=== PATIENT | female | born 1950 | race Caucasian/White ===

== ENCOUNTER 2018-06-02 13:38 | Inpatient (IN) | payer OTHER ==
[~2018-06-02] VITALS: Ht 160 cm; Wt 72.8 kg
[2018-06-02 15:47] VITALS: BP 114/53
[2018-06-02] MEDS ORDERED: MOTRIN600 MG PO (16:18)
[2018-06-02] MEDS ORDERED: XANAX0.25 MG PO (16:20)
[2018-06-02] MEDS ORDERED: ZYRTEC10 M3 PO (16:22)
[2018-06-02] MEDS ORDERED: VASOTEC20 MG PO (16:22)
[2018-06-02] MEDS ORDERED: ERY-TAB500 MG PO (16:23)
[2018-06-02] MEDS ORDERED: FLUTICASONE PRO60 ML TP (16:24)
[2018-06-02] MEDS ORDERED: HYDROCHLOROTHIA25 MG PO (16:25)
[2018-06-02] MEDS ORDERED: LEVOTHYROXINE50 MCG PO (16:26)
[2018-06-02] MEDS ORDERED: COMBIVENT RESPIM4 GM IH (16:26)
[2018-06-02] MEDS ORDERED: CYTOMEL5 MCG PO (16:27)
[2018-06-02] MEDS ORDERED: PAXIL20 MG PO (16:27)
[2018-06-02] MEDS ORDERED: NUCYNTA50 MG PO (16:28)
[2018-06-02] MEDS ORDERED: LIPITOR20 MG PO (16:29)
[2018-06-02] MEDS ORDERED: NEURONTIN600 MG PO (16:29)
[2018-06-02] MEDS ORDERED: GLUCAGON1 MG IM (16:30)
[2018-06-02] MEDS ORDERED: HUMALOG100 UNIT/1 SC (16:30)
[2018-06-02] MEDS ORDERED: TOPROL XL100 MG PO (16:31)
[2018-06-02 23:32] VITALS: BP 132/61
[2018-06-03 05:25] VITALS: BP 136/62
[2018-06-03 06:54] LABS: HEMOGLOBIN 9.9 G/DL (11.9-15.5); MCH 32.4 PG (29.0-34.0); MCHC 34.1 G/DL (30.0-36.0); MCV 94.8 FL (83-99); PLATELET COUNT 273 K/uL (156-360); RBC DIS.WIDTH-CV 12.4 % (11.8-14.6); RBC DIS.WIDTH-SD 43.2 % (39-53); RED BLOOD COUNT 3.06 M/uL (3.80-5.20); WHITE BLOOD COUNT 12.3 K/uL (4.1-10.2)
[2018-06-03 07:18] LABS: ALBUMIN 2.9 G/DL (3.2-4.8); ALKALINE PHOSPHATASE 83 IU/L (3-129); ALT (GPT) 7 IU/L (3-49); AST (GOT) 10 IU/L (2-34); CHLORIDE 95 MEQ/L (99-109); CREATININE 0.6 MG/DL (0.6-1.3); GFR ESTIMATE (CALCULATED) > 59 mL/min/; GLUCOSE 222 mg/dL (70-99); POTASSIUM 4.8 MEQ/L (3.7-5.4); SODIUM 137 MEQ/L (136-147); TOTAL BILIRUBIN 0.8 MG/DL (0.0-1.0); TOTAL PROTEIN 5.6 G/DL (6.4-8.3); UREA NITROGEN (BUN) 12 mg/dL (9-23)
[2018-06-03 15:25] VITALS: BP 104/53
[2018-06-04 04:01] VITALS: BP 139/100
[2018-06-04 04:40] VITALS: BP 123/61
[2018-06-04 05:53] LABS: BASOPHIL (%) 0.8 % (0-1); BASOPHIL COUNT 0.1 K/uL (0-0.1); EOSINOPHIL (%) 2.8 % (0-5); EOSINOPHIL COUNT 0.3 K/uL (0-0.3); HEMATOCRIT 25.7 % (36.0-46.0); HEMOGLOBIN 8.6 G/DL (11.9-15.5); IMMATURE GRANULOCYTE (%) 0.7 % (0.0-0.7); LYMPHOCYTE (%) 12.5 % (15-42); LYMPHOCYTE COUNT 1.5 K/uL (1.0-2.8); MCH 31.9 PG (29.0-34.0); MCHC 33.5 G/DL (30.0-36.0); MCV 95.2 FL (83-99); MONOCYTE (%) 9.7 % (3-12); MONOCYTE COUNT 1.2 K/uL (0-0.8); NEUTROPHIL (%) 73.5 % (45-76); NEUTROPHIL COUNT 8.8 K/uL (1.8-6.4); PLATELET COUNT 294 K/uL (156-360); RBC DIS.WIDTH-CV 12.5 % (11.8-14.6); RBC DIS.WIDTH-SD 44.2 % (39-53); WHITE BLOOD COUNT 11.9 K/uL (4.1-10.2)
[2018-06-04 06:56] LABS: CHLORIDE 99 MEQ/L (99-109); CREATININE 0.6 MG/DL (0.6-1.3); GFR ESTIMATE (CALCULATED) > 59 mL/min/; GLUCOSE 201 mg/dL (70-99); POTASSIUM 4.4 MEQ/L (3.7-5.4); SODIUM 138 MEQ/L (136-147); UREA NITROGEN (BUN) 13 mg/dL (9-23)
[2018-06-04 15:01] VITALS: BP 122/75
[2018-06-05 06:00] VITALS: BP 148/74
[2018-06-05 09:12] LABS: GLUCOSE 258 mg/dL (70-99)
[2018-06-05 11:00] LABS: HEMOGLOBIN A1c (GLYCOHEMOGLOB) 8.3 % (Below 5.7)
[2018-06-05 15:42] VITALS: BP 128/58
[2018-06-06 04:51] VITALS: BP 109/65
[2018-06-06 06:25] LABS: BASOPHIL (%) 1.1 % (0-1); BASOPHIL COUNT 0.1 K/uL (0-0.1); EOSINOPHIL (%) 3.6 % (0-5); EOSINOPHIL COUNT 0.4 K/uL (0-0.3); HEMATOCRIT 29.9 % (36.0-46.0); HEMOGLOBIN 9.9 G/DL (11.9-15.5); IMMATURE GRANULOCYTE (%) 0.5 % (0.0-0.7); LYMPHOCYTE (%) 20.7 % (15-42); MCH 32.1 PG (29.0-34.0); MCHC 33.1 G/DL (30.0-36.0); MCV 97.1 FL (83-99); MONOCYTE (%) 10.8 % (3-12); NEUTROPHIL (%) 63.3 % (45-76); NEUTROPHIL COUNT 6.1 K/uL (1.8-6.4); PLATELET COUNT 379 K/uL (156-360); RBC DIS.WIDTH-CV 13.1 % (11.8-14.6); RBC DIS.WIDTH-SD 45.4 % (39-53); RED BLOOD COUNT 3.08 M/uL (3.80-5.20); WHITE BLOOD COUNT 9.7 K/uL (4.1-10.2)
[2018-06-06 08:02] LABS: CHLORIDE 102 MEQ/L (99-109); CREATININE 0.5 MG/DL (0.6-1.3); GFR ESTIMATE (CALCULATED) > 59 mL/min/; IRON 39 MCG/DL (35-150); POTASSIUM 4.3 MEQ/L (3.7-5.4); SODIUM 142 MEQ/L (136-147); THYROTROPIN (TSH) 20.1 MIU/L (0.4-5.5); TRANSFERRIN SATUR. 20 % (20-55); UREA NITROGEN (BUN) 12 mg/dL (9-23)
[2018-06-06 08:03] LABS: GLUCOSE 110 mg/dL (70-99)
[2018-06-06 15:04] VITALS: BP 154/81
[2018-06-07 05:57] VITALS: BP 178/74
[2018-06-07 06:22] VITALS: BP 160/72
[2018-06-07 15:03] VITALS: BP 142/81
[2018-06-07 21:00] VITALS: BP 138/64
[2018-06-08 05:39] VITALS: BP 161/80
[2018-06-08 16:00] VITALS: BP 155/78
[2018-06-09 05:49] VITALS: BP 136/73
[2018-06-09 06:15] LABS: BASOPHIL (%) 1.2 % (0-1); BASOPHIL COUNT 0.1 K/uL (0-0.1); EOSINOPHIL COUNT 0.3 K/uL (0-0.3); HEMATOCRIT 31.5 % (36.0-46.0); HEMOGLOBIN 10.3 G/DL (11.9-15.5); IMMATURE GRANULOCYTE (%) 0.8 % (0.0-0.7); LYMPHOCYTE (%) 19.9 % (15-42); MCHC 32.7 G/DL (30.0-36.0); MCV 97.8 FL (83-99); MONOCYTE (%) 9.3 % (3-12); MONOCYTE COUNT 0.9 K/uL (0-0.8); NEUTROPHIL (%) 65.8 % (45-76); NEUTROPHIL COUNT 6.5 K/uL (1.8-6.4); PLATELET COUNT 384 K/uL (156-360); RBC DIS.WIDTH-CV 13.1 % (11.8-14.6); RBC DIS.WIDTH-SD 46.6 % (39-53); RED BLOOD COUNT 3.22 M/uL (3.80-5.20)
[2018-06-09 06:43] LABS: CHLORIDE 101 MEQ/L (99-109); CREATININE 0.6 MG/DL (0.6-1.3); GFR ESTIMATE (CALCULATED) > 59 mL/min/; GLUCOSE 124 mg/dL (70-99); POTASSIUM 4.7 MEQ/L (3.7-5.4); SODIUM 138 MEQ/L (136-147); UREA NITROGEN (BUN) 10 mg/dL (9-23)
[2018-06-09 16:01] VITALS: BP 128/59
[2018-06-10 05:13] VITALS: BP 127/60
[2018-06-10 15:05] VITALS: BP 123/65
[2018-06-11 05:49] VITALS: BP 117/57
[2018-06-11 15:07] VITALS: BP 102/72
[2018-06-12 06:16] VITALS: BP 135/61
[2018-06-12 15:45] VITALS: BP 117/68
[2018-06-13 04:50] VITALS: BP 122/66
[2018-06-13 15:14] VITALS: BP 148/72
[2018-06-13 21:07] VITALS: BP 120/79
[2018-06-14 04:52] VITALS: BP 129/63
[2018-06-14 16:00] VITALS: BP 138/63
[2018-06-15 05:02] VITALS: BP 131/63
[2018-06-15 05:46] LABS: HEMATOCRIT 30.5 % (36.0-46.0); HEMOGLOBIN 9.9 G/DL (11.9-15.5); MCH 31.9 PG (29.0-34.0); MCHC 32.5 G/DL (30.0-36.0); MCV 98.4 FL (83-99); PLATELET COUNT 315 K/uL (156-360); RBC DIS.WIDTH-CV 13.6 % (11.8-14.6); RBC DIS.WIDTH-SD 48.5 % (39-53); WHITE BLOOD COUNT 6.4 K/uL (4.1-10.2)
[2018-06-15 06:10] LABS: CHLORIDE 103 MEQ/L (99-109); CREATININE 0.5 MG/DL (0.6-1.3); GFR ESTIMATE (CALCULATED) > 59 mL/min/; GLUCOSE 132 mg/dL (70-99); POTASSIUM 4.3 MEQ/L (3.7-5.4); SODIUM 140 MEQ/L (136-147); UREA NITROGEN (BUN) 11 mg/dL (9-23)
[2018-06-15 17:40] VITALS: BP 150/67
[2018-06-15] MEDS ORDERED: LEVOTHYROXINE75 MCG PO (17:55)
[2018-06-15] MEDS ORDERED: NUCYNTA50 MG PO (17:55)
[2018-06-15] MEDS ORDERED: VITAMIN D-32000 UNI2 PO (17:55)
[2018-06-15] MEDS ORDERED: NICOTINE PATCH1 EAC1 TD (17:55)
[2018-06-15] MEDS ORDERED: VASOTEC20 MG PO (17:55)
[2018-06-15] MEDS ORDERED: LOVENOX40 MG/0.4 SC (17:55)
[2018-06-16 06:20] VITALS: BP 153/70
== END 2018-06-16 13:42 | disposition home health service (06) | DRG 560 ==
LOC: 3WEST 13:38
PROVIDERS: Family Medicine; Family Medicine Sports Medicine; Physical Medicine & Rehabilitation Pain Medicine
PROC: F07M0ZZ Range of Motion and Joint Mobility Treatment of Musculoskeletal System - Whole Body (ICD-10-PCS; principal; 2018-06-02)
DX: S72.002D Fracture of unspecified part of neck of left femur, subsequent encounter for closed fracture with routine healing (principal); F33.9 Major depressive disorder, recurrent, unspecified; W19.XXXD Unspecified fall, subsequent encounter; Z96.41 Presence of insulin pump (external) (internal); F17.210 Nicotine dependence, cigarettes, uncomplicated; G89.18 Other acute postprocedural pain; G89.29 Other chronic pain; I10 Essential (primary) hypertension; J44.9 Chronic obstructive pulmonary disease, unspecified; M81.0 Age-related osteoporosis without current pathological fracture; D64.9 Anemia, unspecified; E10.42 Type 1 diabetes mellitus with diabetic polyneuropathy; E10.43 Type 1 diabetes mellitus with diabetic autonomic (poly)neuropathy; K31.84 Gastroparesis; E03.9 Hypothyroidism, unspecified; Z96.642 Presence of left artificial hip joint; M54.5 Low back pain; K59.00 Constipation, unspecified; Y92.009 Unspecified place in unspecified non-institutional (private) residence as the place of occurrence of the external cause; Z79.4 Long term (current) use of insulin; Z83.3 Family history of diabetes mellitus; Z90.710 Acquired absence of both cervix and uterus; Z88.6 Allergy status to analgesic agent
CPT/HCPCS: 80048; 80053; 82306; 82948; 83036; 83540; 84439; 84443; 84466; 84999; 85025; 85027; 93971; 94640; 94760; 94799; 97110 GO; 97530 GP; J1650; J1815